=== PATIENT | male | born 1990 | race African-American/Black ===

== ENCOUNTER 2016-07-16 08:01 | Emergency (ER) | payer SELFPAY ==
[2016-07-16] MEDS ORDERED: IBUPROFEN 800 MG TABLET PO ONE (08:40)
[2016-07-16] MEDS ORDERED: HYDROCODONE/ACETAMINOPHEN 5-325 MG TABLET PO ONE (08:41)
--- NOTE | 2016-07-16 08:46 | ER Document Report ---
HPI - HPI Patient complains to provider of: right wrist pain Onset: Other Onset/Duration: Persistent - 3 weeks Quality of pain: Achy Pain Level: 4 Context: Patient reports right wrist pain for the past 3 weeks. 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 Patient states that he did recently filled a pop in his right wrist. Patient denies any specific injury. Associated Symptoms: Other Exacerbated by: Movement - Right wrist pain Relieved by: Remaining still Similar symptoms previously: No Recently seen / treated by doctor: No - ROS ROS below otherwise negative: Yes Systems Reviewed and Negative: Yes All other systems reviewed and negative - CONSTITUTIONAL Constitutional: DENIES: Fever, Chills - NEURO Neurology: DENIES: Weakness - GASTROINTESTINAL Gastrointestinal: DENIES: Nausea - REPRODUCTIVE Reproductive: DENIES: : - MUSCULOSKELETAL Musculoskeletal: REPORTS: Extremity pain - Right wrist. 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 Psychiatric Medical History: Reports: Hx Anxiety, Hx Depression Traumatic Medical History: Reports: Hx Fractures Surgical Hx: Negative - Immunizations Immunizations up to date: No Hx Diphtheria, Pertussis, Tetanus Vaccination: Yes Vertical Provider Document - CONSTITUTIONAL Agree With Documented VS: Yes Exam Limitations: No Limitations General Appearance: WD/WN, No Apparent Distress - INFECTION CONTROL TRAVEL OUTSIDE OF THE [place] IN LAST 30 DAYS: No - HEENT HEENT: Atraumatic, Normocephalic - NECK Neck: Normal Inspection, Supple - RESPIRATORY Respiratory: Breath Sounds Normal, No Respiratory Distress, Chest Non-Tender O2 Sat by Pulse Oximetry: 100 - CARDIOVASCULAR Cardiovascular: Regular Rate, Regular Rhythm, No Murmur Pulses: Normal: Radial - MUSCULOSKELETAL/EXTREMETIES Musculoskeletal/Extremeties: MAEW, FROM, Tender - Tenderness to medial aspect of distal right radius, positive Tinel sign, No Edema. negative: Eccymosis - NEURO Level of Consciousness: Awake, Alert, Appropriate Motor/Sensory: No Motor Deficit, No Sensory Deficit - DERM Integumentary: Warm, Dry, No Rash Course - Vital Signs Vital signs: Temp Pulse Resp BP Pulse Ox 97.7 F 70 16 146/91 H 100 07/16/16 08:04 07/16/16 08:04 07/16/16 08:04 07/16/16 08:04 07/16/16 08:04 - Diagnostic Test Radiology reviewed: Image reviewed, Reports reviewed Procedures - Immobilization Right Wrist Pre-Proc Neuro Vasc Exam: Normal Immobilizer type: Cock-up Performed by: PCT Post-Proc Neuro Vasc Exam: Normal Alignment checked and good: Yes Discharge - Discharge Clinical Impression: Wrist pain, right, Overuse injury Condition: Stable Disposition: HOME, SELF-CARE Instructions: Overuse Syndrome ([facility]), Anti-Inflammatory Medication ([facility]), Temporary Splint ([facility]) Additional Instructions: Return immediately for any new or worsening symptoms Followup with your primary care provider, call tomorrow to make a followup appointment Follow up with orthopedic Dr. for any continued pain or problems Prescriptions: Hydrocodone/Acetaminophen [[place] 5-325 Tablet] 1 each PO Q4 PRN #12 tablet PRN Reason: Naproxen [Naprosyn 250 Nmg Tablet] 1 tab PO BID #14 tablet Forms: Return to Work Referrals: [facility] [Provider Group] - Follow up as needed
[2016-07-16 10:00] VITALS: BP 124/79
== END 2016-07-16 09:54 | disposition home or self-care (01) ==
LOC: ER 08:01
DX: M25.531 Pain in right wrist (principal); M70.88 Other soft tissue disorders related to use, overuse and pressure other site; F17.200 Nicotine dependence, unspecified, uncomplicated
CPT/HCPCS: 99283; 73110; L3984

== ENCOUNTER 2016-08-28 12:56 | Emergency (ER) | payer SELFPAY ==
--- NOTE | 2016-08-28 13:33 | ER Document Report ---
HPI - HPI Pain Level: 5 Context: 26 yo male tripped over dog last pm. c/o pain to right foot, ankle and moran. no weight bearing tolerated Associated Symptoms: None Exacerbated by: Movement, Walking Relieved by: Denies Similar symptoms previously: No Recently seen / treated by doctor: No - ROS Systems Reviewed and Negative: Yes All other systems reviewed and negative - REPRODUCTIVE Reproductive: DENIES: : - DERM Skin Color: Normal Past Medical History - General Information source: Patient - Social History Smoking Status: Current Every Day Smoker Frequency of alcohol use: None Drug Abuse: None Lives with: Friend Family History: Reviewed & Not Pertinent, Other - lived in foster homes, does not know Patient has suicidal ideation: No Patient has homicidal ideation: No Pulmonary Medical History: Reports: Hx Asthma Renal/ Medical History: Denies: Hx Peritoneal Dialysis Musculoskeltal Medical History: Reports Hx Musculoskeletal Trauma - BACK INJ. Psychiatric Medical History: Reports: Hx Anxiety, Hx Depression Traumatic Medical History: Reports: Hx Fractures - Immunizations Immunizations up to date: No Hx Diphtheria, Pertussis, Tetanus Vaccination: Yes Vertical Provider Document - CONSTITUTIONAL Agree With Documented VS: Yes Exam Limitations: No Limitations General Appearance: WD/WN, Severe Distress - INFECTION CONTROL TRAVEL OUTSIDE OF THE [place] IN LAST 30 DAYS: No - HEENT HEENT: Atraumatic, PERRLA - NECK Neck: Normal Inspection, Supple - RESPIRATORY Respiratory: Breath Sounds Normal, No Respiratory Distress O2 Sat by Pulse Oximetry: 97 - CARDIOVASCULAR Cardiovascular: Regular Rate, Regular Rhythm - MUSCULOSKELETAL/EXTREMETIES Musculoskeletal/Extremeties: Tender - right mid dorsal foot. no deformity, edema or echymosis. distal SMC intact. mild tenderness to right medial and lateral malleolous. + abrasion and focal tenderness to right mid pre-tibial area Course - Re-evaluation Re-evalutation: 08/28/16 14:28 xray negative results reviewed with patient pt stable for discharge - Vital Signs Vital signs: Temp Pulse Resp BP Pulse Ox 99.1 F 112 H 16 130/78 H 97 08/28/16 13:08 08/28/16 13:08 08/28/16 13:08 08/28/16 13:08 08/28/16 13:08 Discharge - Discharge Clinical Impression: Right foot sprain Qualifiers: Encounter type: initial encounter Qualified Code(s): S93.601A - Unspecified sprain of right foot, initial encounter Right ankle sprain Qualifiers: Encounter type: initial encounter Contusion of right lower leg Qualifiers: Encounter type: initial encounter Qualified Code(s): S80.11XA - Contusion of right lower leg, initial encounter Condition: Stable Disposition: HOME, SELF-CARE Instructions: Ice Packs ([facility]), Sprain ([facility]), Ultram ([facility]), Rachid Wrap ([facility]) Prescriptions: Tramadol HCl [Ultram 50 mg Tablet] 50 mg PO ASDIR PRN #20 tablet PRN Reason:
[2016-08-28 14:40] VITALS: BP 122/71
== END 2016-08-28 14:38 | disposition home or self-care (01) ==
LOC: ER 12:56
DX: S93.601A Unspecified sprain of right foot, initial encounter (principal); S93.401A Sprain of unspecified ligament of right ankle, initial encounter; S80.11XA Contusion of right lower leg, initial encounter; W01.0XXA Fall on same level from slipping, tripping and stumbling without subsequent striking against object, initial encounter; F17.200 Nicotine dependence, unspecified, uncomplicated
CPT/HCPCS: 99283

== ENCOUNTER 2016-12-15 13:43 | Emergency (ER) | payer SELFPAY ==
[2016-12-15] MEDS ORDERED: KETOROLAC TROMETHAMINE INJ/PF 30 MG/1 ML SDV IV ONE (14:13)
--- NOTE | 2016-12-15 14:15 | ER Document Report ---
ED ENT - General Chief Complaint: Neck Swelling Stated Complaint: THROAT PAIN Time Seen by Provider: 12/15/16 13:54 Mode of Arrival: Ambulatory Information source: Patient Notes: 26-year-old male presents to ED for right-sided neck and in front of his ear swelling with pain to his ear and neck. Patient states it started on Friday but the pain has increased. TRAVEL OUTSIDE OF THE [place] IN LAST 30 DAYS: No - HPI Patient complains to provider of: Ear problem, Other - Face and neck swelling Onset: Other - Friday Onset/Duration: Gradual, Worse Quality of pain: Sharp Severity: Moderate Associated symptoms: Face swelling - In front of the right ear, Sore throat, Swollen glands Similar symptoms previously: No Recently seen / treated by doctor: No - Related Data Allergies/Adverse Reactions: No Known Allergies Allergy (Verified 12/15/16 13:48) Past Medical History - General Information source: Patient - Social History Smoking Status: Current Every Day Smoker Cigarette use (# per day): Yes - 4-5 cigarettes Chew tobacco use (# tins/day): No Smoking Education Provided: Yes - Less than 2 minutes Frequency of alcohol use: Occasional Drug Abuse: Marijuana Occupation: no Lives with: Spouse/Significant other Family History: Reviewed & Not Pertinent, Other - lived in foster homes, does not know Patient has suicidal ideation: No Patient has homicidal ideation: No - Past Medical History Cardiac Medical History: Reports: None Pulmonary Medical History: Reports: Hx Asthma EENT Medical History: Reports: None Neurological Medical History: Reports: None Endocrine Medical History: Reports: None Renal/ Medical History: Reports: None Malignancy Medical History: Reports None GI Medical History: Reports: None Musculoskeltal Medical History: Reports Hx Musculoskeletal Trauma - BACK INJ. Skin Medical History: Reports None Psychiatric Medical History: Reports: Hx Anxiety, Hx Depression Traumatic Medical History: Reports: Hx Fractures Infectious Medical History: Reports: None Surgical Hx: Negative Past Surgical History: Reports: None - Immunizations Immunizations up to date: No Hx Diphtheria, Pertussis, Tetanus Vaccination: Yes Review of Systems - Review of Systems Constitutional: No symptoms reported EENT: No symptoms reported Cardiovascular: No symptoms reported Respiratory: No symptoms reported Gastrointestinal: No symptoms reported Genitourinary: No symptoms reported Male Genitourinary: No symptoms reported Musculoskeletal: No symptoms reported Skin: No symptoms reported Hematologic/Lymphatic: No symptoms reported Neurological/Psychological: No symptoms reported -: Yes All other systems reviewed and negative Physical Exam - Vital signs Vitals: Temp Pulse Resp BP Pulse Ox 98.8 F 73 16 121/73 97 12/15/16 13:45 12/15/16 13:45 12/15/16 13:45 12/15/16 13:45 12/15/16 13:45 Interpretation: Normal - General General appearance: Appears well, Alert - HEENT Head: Normocephalic, Atraumatic Eyes: Normal Pupils: PERRL Ears: Other - Tender in front of his ear External canal: Normal Tympanic membrane: Normal Sinus: Normal Nasal: Normal Mouth/Lips: Normal Mucous membranes: Normal Pharynx: Normal Neck: Posterior cervical chain, Lymphadenopathy - Respiratory Respiratory status: No respiratory distress Chest status: Nontender Breath sounds: Normal Chest palpation: Normal - Cardiovascular Rhythm: Regular Heart sounds: Normal auscultation Murmur: No - Abdominal Inspection: Normal Distension: No distension Bowel sounds: Normal Tenderness: Nontender Organomegaly: No organomegaly - Back Back: Normal, Nontender - Extremities General upper extremity: Normal inspection, Nontender, Normal color, Normal ROM , Normal temperature General lower extremity: Normal inspection, Nontender, Normal color, Normal ROM , Normal temperature, Normal weight bearing. No: Elisa's sign - Neurological Neuro grossly intact: Yes Cognition: Normal Orientation: AAOx4 [place] Coma Scale Eye Opening: Spontaneous [place] Coma Scale Verbal: Oriented [place] Coma Scale Motor: Obeys Commands [place] Coma Scale Total: 15 Speech: Normal Motor strength normal: LUE, RUE, LLE, RLE Sensory: Normal - Psychological Associated symptoms: Normal affect, Normal mood - Skin Skin Temperature: Warm Skin Moisture: Dry Skin Color: Normal Course - Re-evaluation Re-evalutation: 12/15/16 17:54 Discussed history and physical with Dr. Tonya stubbs a he suggested a CT of the soft tissue neck. CT is soft tissue negative was negative patient was treated with clindamycin and Toradol in the emergency room and discharged home with prescription for clindamycin. Patient to follow-up with primary doctor. - Vital Signs Vital signs: Temp Pulse Resp BP Pulse Ox 98.4 F 65 20 112/74 100 12/15/16 15:22 12/15/16 15:22 12/15/16 15:22 12/15/16 15:22 12/15/16 15:22 - Diagnostic Test Radiology reviewed: Image reviewed, Reports reviewed Discharge - Discharge Clinical Impression: Acute parotitis Condition: Stable Disposition: HOME, SELF-CARE Instructions: Family Physicians / Practices Additional Instructions: Acute Parotid Gland Swelling The swollen area on your face is an enlarged parotid gland. This gland makes saliva, passing it to the mouth by a duct. Sudden swelling is usually due to blockage of the duct. If infection occurs behind the blocked duct, it can be very serious. The doctor will look for a stone in the duct. The usual treatment is: (1) to promote saliva flow, (2) to prevent or suppress infection in the gland, and (3) to control pain and swelling. Your physician may recommend rinses with dilute lemonade, or using lemon drops, to stimulate saliva. Depending on the circumstances, either warm packs or cold packs may be helpful in reducing pain and swelling (discuss this with your doctor). Antibiotics are often given. Call the doctor or return for re-examination if you develop high fever, chills, severe headache, or increasing painful swelling of the gland. Clindamycin You have been given a prescription for the antibiotic clindamycin. It is often prescribed for infections in the mouth, such as dental infections or abscesses, and for skin infections due to MRSA. It's important that you take all the medication, unless instructed otherwise by your physician. Failure to complete the entire course can result in relapse of your condition. Common side effects of antibiotics include nausea, intestinal cramping, or diarrhea. Women may develop vaginal yeast infections, and babies can get yeast (thrush) in the mouth following the use of antibiotics. Contact your physician if you develop significant side effects from this medication. Allergy to this antibiotic can result in hives, wheezing, faintness, or itching. If symptoms of allergy occur, stop the medication and call the doctor. Ibuprofen Ibuprofen is an excellent, safe drug for pain control. In addition, it has potent antiinflammatory effects which are beneficial, especially in the treatment of injuries, arthritis, or tendonitis. It's best to take ibuprofen with food. Persons with ulcer disease or allergy to aspirin should notify their physician of this before taking ibuprofen. Take the medication exactly as prescribed. Don't take additional doses unless instructed to do so by your doctor. If you develop wheezing, shortness of breath, hives, faintness, stomach pain, vomiting, or dark black stools, return for re-evaluation at once. FOLLOW-UP CARE: If you have been referred to a physician for follow-up care, call the physician s office for an appointment as you were instructed or within the next two days. If you experience worsening or a significant change in your symptoms, notify the physician immediately or return to the Emergency Department at any time for re-evaluation. Prescriptions: Clindamycin HCl [Cleocin 300 mg Capsule] 300 mg PO Q6 #12 capsule
--- NOTE | 2016-12-15 14:47 | RADIOLOGY REPORT (SQ) ---
EXAM DESCRIPTION: CT SOFT TISSUE NECK WITH COMPLETED DATE/TIME: 12/15/2016 2:36 pm REASON FOR STUDY: facial swelling COMPARISON: None. TECHNIQUE: Post IV contrasted scanning from skull base through lung apices with review of bone, soft tissue and lung windows. Reconstructed coronal and sagittal MPR images reviewed. All images stored on PACS. All CT scanners at this facility use dose modulation, iterative reconstruction, and/or weight based d osing when appropriate to reduce radiation dose to as low as reasonably achievable (ALARA). [facility]: Dose Right [facility]: CareDose [facility]: Dose Right [facility]: Teradose 4D [facility]: [employer] CONTRAST TYPE AND DOSE: 75mL Isovue 370- low osmolar. RENAL FUNCTION: None required. The patient is less than 50 years old. RADIATION DOSE: Up-to-date CT equipment and radiation dose reduction techniques were employed. CTDIv ol: 7.3 mGy. DLP: 239 mGy-cm. mGy. LIMITATIONS: None. FINDINGS: SKULL BASE: Intact. MAJOR SALIVARY GLANDS: No solid or cystic masses. No inflammatory changes. LYMPHADENOPATHY: No adenopathy. MUCOSAL MASSES OR ASYMMETRY: No mucosal masses or asymmetry. LARYNX/CORDS: No abnormal findings. VASCULAR STRUCTURES: The major vessels are patent. LUNG APICES: Clear. BONES: Intact. THYROID: Normal size. No masses. PARANASAL SINUSES: Tiny bilateral maxillary sinus mucous retention cyst. No air-fluid levels. OTHER: No other significant finding. IMPRESSION: NO SIGNIFICANT FINDING IN THE SOFT TISSUES OF THE NECK. TECHNICAL DOCUMENTATION: JOB ID: [id number] [facility] [id number]: Final reports with documentation of one or more dose reduction techniques (e.g., Automate d exposure control, adjustment of the mA and/or kV according to patient size, use of iterative recons truction technique) 2010 [employer]- All Rights Reserved
[2016-12-15] MEDS ORDERED: CEPHALEXIN 500 MG CAPSULE PO ONE (15:02)
[2016-12-15] MEDS ORDERED: CLINDAMYCIN HCL 150 MG CAPSULE PO ONE (15:04)
[2016-12-15 15:23] VITALS: BP 112/74
== END 2016-12-15 15:22 | disposition home or self-care (01) ==
LOC: ER 13:43
DX: K11.21 Acute sialoadenitis (principal); J45.909 Unspecified asthma, uncomplicated; F17.210 Nicotine dependence, cigarettes, uncomplicated; Z71.6 Tobacco abuse counseling; M54.2 Cervicalgia; J02.9 Acute pharyngitis, unspecified
CPT/HCPCS: 99284; 96374; 70491; J1885

== ENCOUNTER 2017-02-07 12:10 | Emergency (ER) | payer SELFPAY ==
--- NOTE | 2017-02-07 12:29 | ER Document Report ---
ED Substance Abuse / Acc. OD - General Mode of Arrival: Medic Information source: Emergency Med Personnel TRAVEL OUTSIDE OF THE [place] IN LAST 30 DAYS: No - HPI Patient complains to provider of: Other - Possible overdose Onset: This morning Associated Symptoms: Other - see notes above <FRITZ WASHBURNUR - Last Filed: 02/07/17 12:34> <ILA CHU - Last Filed: 02/07/17 16:25> - General Chief Complaint: Possible Overdose Stated Complaint: POSSIBLE OVERDOSE Time Seen by Provider: 02/07/17 12:15 Notes: 26 year old male with history of anxiety and depression presents to the ED via EMS after getting upset with his mother and allegedly taking 60 Celexa and 60 Hydroxyzine earlier this morning. Patient locked himself in the bathroom and it took [employer] 30 minutes for them to get to him. Patient was combative and was given 7 IM Versed. EMS found various medication at the patient's residence and brought with them a few different empty bottles dated from over a year ago. A comprehensive HPI is currently unobtainable due to the patient's status. ( ZEENAT WASHBURN) 26-year-old male with history of alcohol and substance abuse, depression, and behavior disorder. Allegedly was out drinking last night, came home at some point this morning got upset with his mother and took overdose of Celexa and hydroxyzine, quantity tablets unknown. Locked himself in bathroom. [employer] was called to the home to assist in extricate him from the bathroom. He ultimately ended up in handcuffs and still remained combative to the point that EMS gave him 2.5 mg of Versed 3 times(total of 7.5 mg) until they got him under control. EMS reports that the patient lives with his parents, and his girlfriend. (ILA CHU) - Related Data Allergies/Adverse Reactions: No Known Allergies Allergy (Verified 12/15/16 13:48) Home Medications: Current Home Medications No Home Medications 02/07/17 [History] Past Medical History - General Information source: Patient - Social History Smoking Status: Unknown if Ever Smoked Family History: Reviewed & Not Pertinent, Other - lived in foster homes, does not know Pulmonary Medical History: Reports: Hx Asthma Renal/ Medical History: Denies: Hx Peritoneal Dialysis Musculoskeltal Medical History: Reports Hx Musculoskeletal Trauma - BACK INJ. Psychiatric Medical History: Reports: Hx Anxiety, Hx Depression Traumatic Medical History: Reports: Hx Fractures - Immunizations Immunizations up to date: No Hx Diphtheria, Pertussis, Tetanus Vaccination: Yes <ZEENAT WASHBURN - Last Filed: 02/07/17 12:34> Review of Systems - Review of Systems -: Yes ROS unobtainable due to patient's medical condition <FRITZ WASHBURNUR - Last Filed: 02/07/17 12:34> Physical Exam - General General appearance: Other - patient is minimally responsive due to IM Versed and in restraints - HEENT Head: Normocephalic, Atraumatic Eyes: Normal Extraocular movements intact: Yes Pupils: PERRL - pupils are slightly constricted - Respiratory Respiratory status: No respiratory distress Breath sounds: Normal - Cardiovascular Rhythm: Regular Heart sounds: Normal auscultation - Abdominal Inspection: Normal - Extremities General upper extremity: Normal inspection, Normal ROM General lower extremity: Normal inspection, Normal ROM - Neurological Neuro grossly intact: Yes - Skin Skin Temperature: Warm Skin Moisture: Diaphoretic Skin Color: Normal <ZEENAT WASHBURN - Last Filed: 02/07/17 12:34> - Vital signs Vitals: Temp Resp Pulse Ox 97.4 F 28 H 95 02/07/17 12:17 02/07/17 12:17 02/07/17 12:17 Course - Laboratory Result Diagrams: 02/07/17 12:21 02/07/17 12:21 <ZEENAT WASHBURN - Last Filed: 02/07/17 12:34> - Laboratory Result Diagrams: 02/07/17 12:21 02/07/17 12:21 - EKG Interpretation by Id EKG shows normal: Sinus rhythm, Mullen, Intervals, QRS Complexes. abnormal: ST-T Waves - Early repolarization pattern Rate: Normal - 95 Rhythm: NSR When compared to previous EKG there are: No significant change <ILA CHU - Last Filed: 02/07/17 16:25> - Re-evaluation Re-evalutation: 02/07/17 16:24 The patient is now awake and alert. He refuses to interact or answer any questions. He will be placed on IVC hold until he can be better evaluated by the psychiatry/psychology department here. (ILA CHU) - Vital Signs Vital signs: Temp Pulse Resp BP Pulse Ox 97.4 F 17 102/73 96 02/07/17 12:17 02/07/17 13:00 02/07/17 13:00 02/07/17 13:00 - Laboratory Laboratory results interpreted by me: 02/07/17 02/07/17 02/07/17 12:21 12:21 12:42 RBC 5.94 H MCV 73 L MCH 23.5 L RDW 14.5 H Sodium 145.5 H Carbon Dioxide 21 L Anion Gap 21 H Glucose 161 H Albumin 5.1 H Urine Protein 100 H Urine Ketones TRACE H Urine Urobilinogen 4.0 H Urine Ascorbic Acid 40 H Salicylates < 1.0 L Acetaminophen < 10 L Discharge <ZEENAT WASHBURN - Last Filed: 02/07/17 12:34> <ILA CHU - Last Filed: 02/07/17 16:25> - Discharge Clinical Impression: Cocaine abuse, Multiple substance abuse, Difficulty controlling anger Overdose Qualifiers: Encounter type: initial encounter Injury intent: undetermined intent Qualified Code(s): T50.904A - Poisoning by unspecified drugs, medicaments and biological substances, undetermined, initial encounter Condition: Stable Disposition: PSYCH HOSP/UNIT Scribe Attestation: 02/07/17 13:33 I personally performed the services described in the documentation, reviewed and edited the documentation which was dictated to the scribe in my presence, and it accurately records my words and actions. (ILA CHU) Scribe Documentation - Scribe Written by Scribe:: Smith Grant, 02/07/2017 1246 acting as scribe for :: Darci <ZEENAT WASHBURN - Last Filed: 02/07/17 12:34>
[2017-02-07 12:54] LABS: ABSOLUTE MONOCYTES (AUTO) 0.5 10^3/uL (0.1-1.4); ABSOLUTE NEUT (AUTO) 4.5 10^3/uL (1.7-8.2); BASOPHILS % (AUTO) 0.7 % (0-2); HEMATOCRIT 43.6 % (37.9-51.0); HGB HCT DIFFERENCE -1.6; LYMPHOCYTES % (AUTO) 17.1 % (13-45); MEAN CORPUSCULAR HEMOGLOBIN 23.5 pg (27.0-33.4); MEAN CORPUSCULAR VOLUME 73 fl (80-97); MONOCYTES % (AUTO) 8.6 % (3-13); RED BLOOD COUNT 5.94 10^6/uL (4.35-5.55); RED CELL DISTRIBUTION WIDTH 14.5 % (11.5-14.0); SEGMENTED NEUTROPHILS % (AUTO) 73.6 % (42-78); WHITE BLOOD COUNT 6.1 10^3/uL (4.0-10.5)
--- NOTE | 2017-02-07 13:03 | EKG REPORT ---
SEVERITY:- ABNORMAL ECG - SINUS RHYTHM SHORT TN INTERVAL, ACCELERATED AV CONDUCTION CONSIDER LEFT VENTRICULAR HYPERTROPHY ST ELEV, PROBABLE NORMAL EARLY REPOL PATTERN : Confirmed by: Yakov Duncan MD 07-Feb-2017 13:03:15
[2017-02-07 13:08] LABS: APPEARANCE,URINE SLIGHTLY-CLOUDY; BILIRUBIN,URINE NEGATIVE (NEGATIVE); GLUCOSE, URINE NEGATIVE (NEGATIVE); KETONES,URINE TRACE mg/dL (NEGATIVE); LEUKOCYTE ESTERASE,URINE NEGATIVE (NEGATIVE); NITRITE,URINE NEGATIVE (NEGATIVE); PROTEIN,URINE 100 mg/dL (NEGATIVE); URINE SPECIFIC GRAVITY 1.033
[2017-02-07 13:08] LABS: ALANINE AMINOTRANSFERASE 36 U/L (21-72); ALBUMIN 5.1 g/dL (3.5-5.0); ALCOHOL < 10 mg/dL (NONE DETECTED); ALKALINE PHOSPHATASE 62 U/L (38-126); ASPARTATE AMINO TRANSFERASE 34 U/L (17-59); BILIRUBIN,DIRECT 0.4 mg/dL (0.0-0.4); BILIRUBIN,TOTAL 0.7 mg/dL (0.2-1.3); BLOOD UREA NITROGEN 14 mg/dL (7-20); CALCIUM 10.2 mg/dL (8.4-10.2); CARBON DIOXIDE 21 mmol/L (22-30); CHLORIDE 104 mmol/L (98-107); CREATININE RESULT 1.16 mg/dL (0.52-1.25); GLUCOSE 161 mg/dL (75-110); POTASSIUM 3.8 mmol/L (3.6-5.0); TOTAL PROTEIN 7.8 g/dL (6.3-8.2)
[2017-02-07 13:14] LABS: SODIUM 145.5 mmol/L (137-145)
[2017-02-07 13:20] LABS: URINE BARBITURATES SCREEN NEGATIVE; URINE METHADONE SCREEN NEGATIVE; URINE OPIATES LOW NEGATIVE; URINE PHENCYCLIDINE SCREEN NEGATIVE
[2017-02-07 13:21] LABS: ANION GAP 21 (5-19)
[2017-02-07] MEDS ORDERED: RINGERS SOLUTION,LACTATED 1,000 ML IV ONE (13:30)
--- NOTE | 2017-02-08 12:56 | ER Document Report ---
ED Psych Disorder / Suicide - General Chief Complaint: Possible Overdose Stated Complaint: POSSIBLE OVERDOSE Time Seen by Provider: 02/07/17 12:15 Mode of Arrival: Medic Information source: Patient, [facility] Records TRAVEL OUTSIDE OF THE [place] IN LAST 30 DAYS: No - HPI Suicide Risk Factors: Depressed, Frightened friends/family, Male, Substance abuse Situational problems related to: Other - pending homelessness Overdose of: Other Normal mood: No Associated symptoms: Depressed Similar symptoms previously: Yes - long hx Recently seen / treated by doctor: No Notes: Patient is a 26-year-old male who presented yesterday to to Polypharm overdose. Patient was reportedly combative on scene and additionally received 7 mg of Versed by EMS in route. Patient was unable to be evaluated. Patient today refuses to remove the covers from his face and does not verbally answer any questions himself. All information is provided by his jayesh who is bedside, and/or gathered by patient's EMR. Brandon George [phone] states: Yesterday around 11 she heard the patient throwing up. She states she went into the room and observed him open a bottle of pills and throat back in his mouth. She states he immediately started gagging and spitting/vomiting again. She states pill fragments were evident. She reports she tried to get the roommate to come help and when she returned the patient locked her out of the bedroom. Jayesh reports she used a knife to open the door and when he was still upset and agitated she went back to get the other roommate. Jayesh reports when they returned, patient's brother had to break the door down and patient was found "slicing his wrists" with the knife she previously used to enter the room. Jayesh states everything had been fine, but the woman they were staying with told everyone in the house they had to leave. She states the patient previously had outpatient services via [facility] however they were not reassigned to a new provider and have yet to identify one on their own. Jayesh reports the patient is diagnosed with depression and PTSD. She states his mood has been up and down. She states the patient did endorse suicidal intent behind his overdose and even when he was handcuffed he continued to bang his head on the wall. Patient is alert and oriented and does respond verbally however will not remove the covers from his head. Patient endorses that he is depressed. Patient endorses his overdose was a suicide attempt. Patient denies homicidal ideations , intent, plan, means. Patient denies A/VH; delusions not noted. Thought processes were guarded. Conversational speech was low for rate, tone, and prosody. Intellectual abilities were estimated within average range. Attention and focus were poor. Insight, judgment, impulse control are poor. Cocaine use disorder, moderate Cannabis use disorder, moderate Unspecified depressive disorder, per history Posttraumatic stress disorder, per history Patient is psychiatrically cleared for discharge. Patient's overall presentation and episode is considered to be directly related to his drug abuse , specifically chronic cocaine and marijuana use. Patient is encouraged and recommended to pursue outpatient services via [facility] who specializes in both substance abuse and mental illness. Patient and fianc were provided a list of resources to assist them in following up, to include contact information for mobile crisis. Additionally patient and fianc were provided resources for the [facility] Guide. Review of patient's medical records suggests a long history of prior episodes of similar etiology, specifically to also include not verbally engaging requiring patient's fianc to serve as historian. I consulted with Dr. Porter in regards to the care and management of this patient. - Related Data Allergies/Adverse Reactions: No Known Allergies Allergy (Verified 12/15/16 13:48) Home Medications: Current Home Medications No Home Medications 02/07/17 [History] Past Medical History - General Information source: Patient, Relative - fiance, [facility] Records - Social History Smoking Status: Unknown if Ever Smoked Frequency of alcohol use: Social Drug Abuse: Cocaine, Marijuana Lives with: Family, Spouse/Significant other Family History: Reviewed & Not Pertinent, Other - lived in foster homes, does not know Patient has suicidal ideation: No Patient has homicidal ideation: No Pulmonary Medical History: Reports: Hx Asthma Renal/ Medical History: Denies: Hx Peritoneal Dialysis Musculoskeltal Medical History: Reports Hx Musculoskeletal Trauma - BACK INJ. Psychiatric Medical History: Reports: Hx Anxiety, Hx Depression Traumatic Medical History: Reports: Hx Fractures - Immunizations Immunizations up to date: No Hx Diphtheria, Pertussis, Tetanus Vaccination: Yes Physical Exam - Vital signs Vitals: Temp Resp Pulse Ox 97.4 F 28 H 95 02/07/17 12:17 02/07/17 12:17 02/07/17 12:17 Course - Vital Signs Vital signs: Temp Pulse Resp BP Pulse Ox 97.4 F 56 L 18 110/60 100 02/07/17 12:17 02/08/17 06:55 02/08/17 06:55 02/08/17 06:55 02/08/17 06:55 - Laboratory Result Diagrams: 02/07/17 12:21 02/07/17 12:21 Laboratory results interpreted by me: 02/07/17 02/07/17 02/07/17 12:21 12:21 12:42 RBC 5.94 H MCV 73 L MCH 23.5 L RDW 14.5 H Sodium 145.5 H Carbon Dioxide 21 L Anion Gap 21 H Glucose 161 H Albumin 5.1 H Urine Protein 100 H Urine Ketones TRACE H Urine Urobilinogen 4.0 H Urine Ascorbic Acid 40 H Salicylates < 1.0 L Acetaminophen < 10 L Discharge - Discharge Clinical Impression: Cocaine abuse, Multiple substance abuse, Difficulty controlling anger Overdose Qualifiers: Encounter type: initial encounter Injury intent: undetermined intent Qualified Code(s): T50.904A - Poisoning by unspecified drugs, medicaments and biological substances, undetermined, initial encounter Condition: Stable Disposition: HOME, SELF-CARE Additional Instructions: Cocaine Abuse Cocaine causes many dangerous medical problems. Problems can occur even with "usual" amounts. Cocaine affects judgement, creating a sense of invulnerability. Cocaine users often make bad decisions that seem "great" at the time. Most cocaine users eventually will be hurt by bad job performance, damaged personal relations, crime, and unsafe sexual practices. Toxic effects of cocaine can include seizures, hallucinations, delusions, high blood pressure, heart damage, or sudden . There's always the risk of a "bad batch." But heart attacks, brain hemorrhages, or cardiac arrest can occur unpredictably even with "normal" use. Injection of cocaine is risky for abscesses, endocarditis (heart infection) , pneumonia, and AIDS. Withdrawal from cocaine often causes anxiety and drug cravings. Some users become paranoid and psychotic. Many treatment programs are available, but you must make the decision to quit. Medication can be prescribed to control the symptoms of cocaine toxicity (beta blockers or benzodiazepines). Withdrawal symptoms may require tranquilizers. Suicidal Ideation Suicidal ideation is a common medical term for thoughts about suicide, which may be as detailed as a formulated plan, without the suicidal act itself. Although most people who undergo suicidal ideation do not commit suicide, some go on to make suicide attempts. The range of suicidal ideation varies greatly from fleeting to detailed planning, role playing, and unsuccessful attempts. Please follow-up with [facility]. You may walk-in beginning Friday at 8 AM. [facility] specializes in mental illness as well as substance abuse. Please stop using drugs. Please return if your symptoms worsen. You have been provided a list of resources to assist you in following up to also include the Homeless [facility] Resource Guide. Referrals: [facility] [Provider Group] - 02/10/17 8:00 am (Please walk in for your Comprehensive Clinical Assessment to determine services.) Scribe Attestation: 02/07/17 13:33 I personally performed the services described in the documentation, reviewed and edited the documentation which was dictated to the scribe in my presence, and it accurately records my words and actions.
--- NOTE | 2017-02-08 14:11 | ER Document Report ---
Doctor's Note Notes: 02/08/17 14:10 26-year-old male with history of alcohol and substance abuse, depression, and behavior disorder. Allegedly was out drinking, came home at some point this morning got upset with his mother and took overdose of Celexa and hydroxyzine, quantity tablets unknown. Labs and drug screen as recorded. Patient denies any auditory or visual hallucinations. Patient is calm and sleeping in no acute distress. Patient still endorses suicidal ideation. Patient does not have a psychiatrist/ psychologist. He was supposed to follow-up with [facility], but has not seen them in an extended period of time. We will continue to observe the patient in attempt to medically manage as well as possibly find placement.
[2017-02-09] MEDS ORDERED: BUSPIRONE HCL 10 MG TABLET PO SCH ×2 (10:00→18:00)
[2017-02-09] MEDS ORDERED: VENLAFAXINE HCL 37.5 MG CAP.SR.24H PO SCH (10:00)
[2017-02-09] MEDS ORDERED: BUSPIRONE HCL 10 MG TABLET PO ONE ×2 (11:15→13:00)
[2017-02-10 09:50] VITALS: BP 118/70
== END 2017-02-10 09:42 | disposition home or self-care (01) ==
LOC: ER 12:10
DX: F14.10 Cocaine abuse, uncomplicated (principal); F41.9 Anxiety disorder, unspecified; T43.222A Poisoning by selective serotonin reuptake inhibitors, intentional self-harm, initial encounter; T43.592A Poisoning by other antipsychotics and neuroleptics, intentional self-harm, initial encounter; R45.4 Irritability and anger; Y92.002 Bathroom of unspecified non-institutional (private) residence as the place of occurrence of the external cause; F12.10 Cannabis abuse, uncomplicated
CPT/HCPCS: 93005; 99285; 96365; 36415; 80307 ×4; 85025; 80053; 81001; 93010; J7120

== ENCOUNTER 2017-02-16 01:33 | Emergency (ER) | payer SELFPAY ==
[2017-02-16] MEDS ORDERED: NORMAL SALINE 1000 ML 1,000 ML IV ONE (01:42)
--- NOTE | 2017-02-16 01:49 | ER Document Report ---
ED General - General Stated Complaint: ETOH Time Seen by Provider: 02/16/17 01:36 Notes: Patient is a 26-year-old male presents with complaint of alcohol intoxication possible panic attack. Her medics brought him in. They said they are called because he was sitting in front of the tobacco store intoxicated. When he got there he was saying that he cannot stand or walk. They eventually got him to stand up and walk to the ambulance truck. Patient does start hyperventilating and thing is having panic attack. Paramedics did not give him any medication is able to eventually come down. Since then the patient has been keeping his eyes closed. I was able sternal rub from the open his eyes looked at me and then close them again. He will not answer any of my questions. He is in no distress currently. TRAVEL OUTSIDE OF THE [place] IN LAST 30 DAYS: No - Related Data Allergies/Adverse Reactions: No Known Allergies Allergy (Verified 02/16/17 02:07) Past Medical History - Social History Smoking Status: Never Smoker Frequency of alcohol use: None Drug Abuse: None Family History: Reviewed & Not Pertinent, Other - lived in foster homes, does not know Pulmonary Medical History: Reports: Hx Asthma Renal/ Medical History: Denies: Hx Peritoneal Dialysis Musculoskeltal Medical History: Reports Hx Musculoskeletal Trauma - BACK INJ. Psychiatric Medical History: Reports: Hx Anxiety, Hx Depression Traumatic Medical History: Reports: Hx Fractures - Immunizations Immunizations up to date: No Hx Diphtheria, Pertussis, Tetanus Vaccination: Yes Review of Systems - Review of Systems -: Yes ROS unobtainable due to patient's medical condition - Patient will not answer questions. Currently intoxicated with alcohol. Physical Exam - Vital signs Vitals: Temp Pulse Resp BP Pulse Ox 97.4 F 66 16 102/52 L 100 02/16/17 02:22 02/16/17 02:22 02/16/17 02:22 02/16/17 02:22 02/16/17 02:22 - Notes Notes: General Appearance: Middle with eyes closed with no current distress. No tachypnea. Vitals: reviewed, See vital signs table. Head: no swelling or tenderness to the head Eyes: PERRL, EOMI, Conjuctiva clear Neck: Supple, no neck tenderness, Lungs: No wheezing, No rales, No rhonci, No accessory muscle use, good air exchange bilaterally. Heart: Normal rate, Regular rythm, No murmur, no rub Abdomen: Normal BS, soft, No rigidity, No abdominal tenderness, No guarding, no rebound, no abdominal masses, no organomegaly Extremities: strength 5/5 in all extremities, good pulses in all extremities, no swelling or tenderness in the extremities, no edema. Skin: warm, dry, appropriate color, no rash Neuro: Patient will open his eyes during sternal rub and look at me. When I asked him a question just closes his eyes and will not answer my question. Patient does withdraw to painful stimuli. Further neuro exam was not able to be obtained as patient is not compliant with instructions. Course - Re-evaluation Re-evalutation: 02/16/17 04:52 Patient is now awake and alert. He says he does not remember exactly what happened tonight. Does admit to drinking some alcohol. He says he does have a history of panic attacks and is on medication for this. He is unsure if he took that medication tonight. He says he now feels very well and has no further concerns or complaints. He denies having a severe depression at this time. He says he has no further needs from the ER at this time. Patient encouraged to return to ER if he has any further concerns or has any further issues. Patient will be discharged home. Patient agrees with plan will be discharged. Dictation of this chart was performed using voice recognition software; therefore, there may be some unintended grammatical errors. - Vital Signs Vital signs: Temp Pulse Resp BP Pulse Ox 97.4 F 66 16 102/52 L 100 02/16/17 02:22 02/16/17 02:22 02/16/17 02:22 02/16/17 02:22 02/16/17 02:22 - Laboratory Result Diagrams: 02/16/17 01:57 02/16/17 03:42 Laboratory results interpreted by me: 02/16/17 02/16/17 01:57 03:42 RBC 5.74 H MCV 72 L MCH 23.9 L RDW 14.4 H Seg Neutrophils % 40.9 L Lymphocytes % 50.3 H Chloride 108 H Total Protein 6.1 L Salicylates < 1.0 L Acetaminophen < 10 L - EKG Interpretation by Me Additional EKG results interpreted by me: 02/16/17 01:53 EKG is reviewed and interpreted by me. EKG shows normal sinus rhythm with rate of 69 bpm. Patient has concave up ST segment elevation consistent with early repolarization abnormality. No reciprocal ST segment depressions. OR interval , QRS duration, QTc intervals are within normal range. Old EKG for comparison is from February 07, 2017. Discharge - Discharge Clinical Impression: Alcohol abuse, Anxiety Condition: Good Disposition: HOME, SELF-CARE Additional Instructions: Please stay away from alcohol. Please return to the ER if you feel unwell, have severe depression, or have further concerns. Please follow-up with your doctor or counselor in the next 3-4 days for reevaluation.
[2017-02-16 02:11] LABS: ABSOLUTE LYMPHOCYTES (AUTO) 2.2 10^3/uL (0.5-4.7); ABSOLUTE MONOCYTES (AUTO) 0.3 10^3/uL (0.1-1.4); ABSOLUTE NEUT (AUTO) 1.8 10^3/uL (1.7-8.2); BASOPHILS % (AUTO) 1.1 % (0-2); EOSINOPHILS % (AUTO) 0.7 % (0-6); HEMATOCRIT 41.4 % (37.9-51.0); HEMOGLOBIN 13.7 g/dL (13.5-17.0); HGB HCT DIFFERENCE -0.3; LYMPHOCYTES % (AUTO) 50.3 % (13-45); MEAN CORPUSCULAR HEMOGLOBIN 23.9 pg (27.0-33.4); MEAN CORPUSCULAR HGB CONC 33.1 g/dL (32.0-36.0); MEAN CORPUSCULAR VOLUME 72 fl (80-97); RED BLOOD COUNT 5.74 10^6/uL (4.35-5.55); RED CELL DISTRIBUTION WIDTH 14.4 % (11.5-14.0); SEGMENTED NEUTROPHILS % (AUTO) 40.9 % (42-78); WHITE BLOOD COUNT 4.4 10^3/uL (4.0-10.5)
[2017-02-16 02:23] VITALS: BP 102/52
[2017-02-16 04:21] LABS: ALANINE AMINOTRANSFERASE 36 U/L (21-72); ALBUMIN 3.7 g/dL (3.5-5.0); ALCOHOL 63 mg/dL (NONE DETECTED); ALKALINE PHOSPHATASE 54 U/L (38-126); ANION GAP 12 (5-19); ASPARTATE AMINO TRANSFERASE 27 U/L (17-59); BILIRUBIN,DIRECT 0.3 mg/dL (0.0-0.4); BILIRUBIN,TOTAL 0.4 mg/dL (0.2-1.3); BLOOD UREA NITROGEN 13 mg/dL (7-20); CALCIUM 8.4 mg/dL (8.4-10.2); CARBON DIOXIDE 24 mmol/L (22-30); CHLORIDE 108 mmol/L (98-107); CREATININE RESULT 0.81 mg/dL (0.52-1.25); GLUCOSE 90 mg/dL (75-110); POTASSIUM 4.5 mmol/L (3.6-5.0); SODIUM 143.7 mmol/L (137-145); TOTAL PROTEIN 6.1 g/dL (6.3-8.2)
--- NOTE | 2017-02-16 09:21 | EKG REPORT ---
SEVERITY:- ABNORMAL ECG - SINUS RHYTHM PROBABLE LEFT VENTRICULAR HYPERTROPHY ST ELEVATION SUGGESTS PERICARDITIS : Confirmed by: Anuja Olguin MD 16-Feb-2017 09:21:01
== END 2017-02-16 06:12 | disposition home or self-care (01) ==
LOC: ER 01:33
DX: F10.129 Alcohol abuse with intoxication, unspecified (principal); J45.909 Unspecified asthma, uncomplicated; F41.9 Anxiety disorder, unspecified; F41.0 Panic disorder [episodic paroxysmal anxiety]; Z79.899 Other long term (current) drug therapy
CPT/HCPCS: 93005; 99284; 96360; 36415; 80307 ×3; 85025; 80053; 93010; J7030

== ENCOUNTER 2017-04-29 15:38 | Emergency (ER) | payer SELFPAY ==
--- NOTE | 2017-04-29 16:53 | ER Document Report ---
ED Medical Screen (RME) - General Chief Complaint: Wrist Pain Stated Complaint: RIGHT WRIST PAIN Time Seen by Provider: 04/29/17 16:51 Mode of Arrival: Ambulatory Information source: Patient Notes: pt reports fx wrist one year ago, still hurts, denies recent trauma. no obvious deformity. TRAVEL OUTSIDE OF THE [place] IN LAST 30 DAYS: No - Related Data Allergies/Adverse Reactions: No Known Allergies Allergy (Verified 04/29/17 15:44) Past Medical History Pulmonary Medical History: Reports: Hx Asthma Renal/ Medical History: Denies: Hx Peritoneal Dialysis Musculoskeltal Medical History: Reports Hx Musculoskeletal Trauma - BACK INJ. Psychiatric Medical History: Reports: Hx Anxiety, Hx Depression Traumatic Medical History: Reports: Hx Fractures - Immunizations Immunizations up to date: No Hx Diphtheria, Pertussis, Tetanus Vaccination: Yes Physical Exam - Vital signs Vitals: Temp Pulse Resp BP Pulse Ox 99.4 F 75 14 145/70 H 99 04/29/17 15:57 04/29/17 15:57 04/29/17 15:57 04/29/17 15:57 04/29/17 15:57 Course - Vital Signs Vital signs: Temp Pulse Resp BP Pulse Ox 99.4 F 75 14 145/70 H 99 04/29/17 15:57 04/29/17 15:57 04/29/17 15:57 04/29/17 15:57 04/29/17 15:57
[2017-04-29] MEDS ORDERED: IBUPROFEN 800 MG TABLET PO ONE (16:56)
--- NOTE | 2017-04-29 17:28 | RADIOLOGY REPORT (SQ) ---
EXAM DESCRIPTION: WRIST RIGHT 3 VIEWS COMPLETED DATE/TIME: 04/29/2017 5:07 pm REASON FOR STUDY: wrist pain COMPARISON: 07/16/2016 NUMBER OF VIEWS: Three views. TECHNIQUE: AP, lateral, and oblique radiographic images acquired of the right wrist. LIMITATIONS: None. FINDINGS: MINERALIZATION: Normal. BONES: No acute fracture or dislocation. No worrisome bone lesions. Normal alignment. SOFT TISSUES: No soft tissue swelling. No foreign body. OTHER: No other significant finding. IMPRESSION: NEGATIVE STUDY OF THE RIGHT WRIST. NO RADIOGRAPHIC EVIDENCE OF ACUTE INJURY. TECHNICAL DOCUMENTATION: JOB ID: [id number] [employer]- All Rights Reserved
--- NOTE | 2017-04-29 19:03 | ER Document Report ---
ED Hand/Wrist Injury - General Chief Complaint: Wrist Pain Stated Complaint: RIGHT WRIST PAIN Time Seen by Provider: 04/29/17 16:51 Mode of Arrival: Ambulatory TRAVEL OUTSIDE OF THE [place] IN LAST 30 DAYS: No - HPI Notes: 27-year-old presents today with complaints of right wrist pain - Related Data Allergies/Adverse Reactions: No Known Allergies Allergy (Verified 04/29/17 15:44) Past Medical History - General Information source: Patient - Social History Smoking Status: Current Some Day Smoker Family History: None, Reviewed & Not Pertinent, Other - lived in foster homes, does not know Pulmonary Medical History: Reports: Hx Asthma Renal/ Medical History: Denies: Hx Peritoneal Dialysis Musculoskeltal Medical History: Reports Hx Musculoskeletal Trauma - BACK INJ. Psychiatric Medical History: Reports: Hx Anxiety, Hx Depression Traumatic Medical History: Reports: Hx Fractures - Immunizations Immunizations up to date: No Hx Diphtheria, Pertussis, Tetanus Vaccination: Yes Review of Systems - Review of Systems Constitutional: No symptoms reported Cardiovascular: No symptoms reported Respiratory: No symptoms reported Gastrointestinal: No symptoms reported Musculoskeletal: See HPI Skin: No symptoms reported -: Yes All other systems reviewed and negative Physical Exam - Vital signs Vitals: Temp Pulse Resp BP Pulse Ox 99.4 F 75 14 145/70 H 99 04/29/17 15:57 04/29/17 15:57 04/29/17 15:57 04/29/17 15:57 04/29/17 15:57 - General General appearance: Appears well In distress: None - Respiratory Respiratory status: No respiratory distress Chest status: Nontender Breath sounds: Normal - Cardiovascular Rhythm: Regular Heart sounds: Normal auscultation Murmur: Yes Normal capillary refill: Yes - Extremities Elbow: Normal Forearm: Normal Wrist: Other - noted right wrist pain with inversion but not on flexion, extenison or eversion of wrist. digits in right and left with full aprom. Full motor and sensory function in JULIO C. 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 Snuffbox tenderness negative on right and left. radial pulses + 2 BUE equally. Negative kanavels sign. No open wounds or drainage from wrist. No vascular compromise. left wrist wnl. Bilateral forearms and elbows with full motor and sensory function equally. 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 On re-exam, patient is symptomatically improved. Discussed the results of the radiology as well as the diagnosis at great length. Discussed the need to return to the ER for any new or worsening sx. Patient understands to take the Rx as directed. All questions answered. Patient comfortable with the decision to go home. 04/29/17 19:21 - Vital Signs Vital signs: Temp Pulse Resp BP Pulse Ox 99.4 F 75 14 145/70 H 99 04/29/17 15:57 04/29/17 15:57 04/29/17 15:57 04/29/17 15:57 04/29/17 15:57 - Diagnostic Test Radiology results interpreted by me: rechecked the patient who is resting comfortably. On re-exam, patient is symptomatically improved. Discussed the results of the labs/radiology as well as the diagnosis at great length. Discussed the need to return to the ER for any new or worsening sx. Patient understands to take the Rx as directed. All questions answered. Patient comfortable with the decision to go home. 04/29/17 19:23 - Diagnostic Exam Right Wrist Type of test: Xray - neg per rad Discharge - Discharge Clinical Impression: Right wrist sprain Qualifiers: Encounter type: initial encounter Qualified Code(s): S63.501A - Unspecified sprain of right wrist, initial encounter Condition: Good Disposition: HOME, SELF-CARE Instructions: Wrist Sprain ([facility]) Additional Instructions: Wear his splint as directed. Apply heat 20 minutes on 20 minutes off several times a day. Follow-up with developmental specialist within 1 week. Wear wrist splint while working.advised to return to the ER if any signs or symptoms became worse. Take [id number] Tylenol and prescription meloxicam as needed for any fevers or pain. Follow up with primary care within 1-2 days. All questions and concerns answered by this provider . Patient/family states would follow plan of care and agreed to plan of care. Patient was discharged home and off unit without incident. Please excuse any errors in this document was done by dragon dictation. Forms: Return to Work Referrals: CHRISTOPHER SOL MD [ACTIVE STAFF] - Follow up as needed
[2017-04-29 19:58] VITALS: BP 128/78
== END 2017-04-29 19:58 | disposition home or self-care (01) ==
LOC: ER 15:38
DX: S63.501A Unspecified sprain of right wrist, initial encounter (principal); F17.200 Nicotine dependence, unspecified, uncomplicated; X58.XXXA Exposure to other specified factors, initial encounter
CPT/HCPCS: 99283

== ENCOUNTER 2017-05-23 01:21 | Emergency (ER) | payer SELFPAY ==
[2017-05-23 03:25] LABS: ABSOLUTE MONOCYTES (AUTO) 0.5 10^3/uL (0.1-1.4); ABSOLUTE NEUT (AUTO) 5.4 10^3/uL (1.7-8.2); BASOPHILS % (AUTO) 0.4 % (0-2); HEMATOCRIT 40.3 % (37.9-51.0); LYMPHOCYTES % (AUTO) 14.1 % (13-45); MEAN CORPUSCULAR HEMOGLOBIN 23.2 pg (27.0-33.4); MEAN CORPUSCULAR HGB CONC 32.3 g/dL (32.0-36.0); MEAN CORPUSCULAR VOLUME 72 fl (80-97); MONOCYTES % (AUTO) 7.1 % (3-13); PLATELET COUNT 189 10^3/uL (150-450); RED BLOOD COUNT 5.63 10^6/uL (4.35-5.55); RED CELL DISTRIBUTION WIDTH 14.4 % (11.5-14.0); SEGMENTED NEUTROPHILS % (AUTO) 78.4 % (42-78); TOTAL CELLS COUNTED % (AUTO) 100 %; WHITE BLOOD COUNT 6.9 10^3/uL (4.0-10.5)
--- NOTE | 2017-05-23 03:34 | RADIOLOGY REPORT (SQ) ---
EXAM DESCRIPTION: CT HEAD WITHOUT CLINICAL HISTORY: trauma COMPARISON: None available TECHNIQUE: Axial CT of the head obtained from the skull apex to the skull base without contrast. FINDINGS: No acute intracranial hemorrhage identified. No mass, mass effect, shift of the midline, abnormal extra-axial fluid collection or CT evidence of acute ischemic change identified. The ventricular system is unremarkable. No acute abnormalities of the supratentorial white matter, basal ganglia, cerebellum, or brainstem. Mucosal thickening of the paranasal sinuses. Mastoid air cells are well aerated. No skull fracture identified. Visualized orbits and globes are unremarkable. Contusion in the anterior frontal scalp soft tissues. DLP: 1106.28 mGy-cm IMPRESSION: 1. No acute intracranial abnormality. This exam was performed according to our departmental dose-optimization program, which includes automated exposure control, adjustment of the mA and/or kV according to patient size and/or use of iterative reconstruction technique.
--- NOTE | 2017-05-23 03:36 | RADIOLOGY REPORT (SQ) ---
EXAM DESCRIPTION: CT CERVICAL SPINE WITHOUT CLINICAL HISTORY: trauma COMPARISON: None available TECHNIQUE: Axial CT of the cervical spine obtained without contrast. FINDINGS: Alignment of the cervical spine is maintained without evidence of subluxation. The atlantoaxial, atlantodental, and occipitoatlantal intervals are preserved. No fracture identified. Vertebral body height preserved. Prevertebral soft tissues are unremarkable. Intervertebral disc height preserved. Mild endplate spondylosis. No central canal narrowing. Visualized skull base is intact. No fracture of the visualized facial bones. Visualized mastoid air cells and paranasal sinuses are well aerated. Visualized thyroid is unremarkable. No cervical lymphadenopathy. No pneumothorax in the visualized lung apices. DLP: 400.23 mGy-cm IMPRESSION: 1. No acute fracture or subluxation of the cervical spine. This exam was performed according to our departmental dose-optimization program, which includes automated exposure control, adjustment of the mA and/or kV according to patient size and/or use of iterative reconstruction technique.
[2017-05-23 03:40] LABS: ALANINE AMINOTRANSFERASE 43 U/L (21-72); ALBUMIN 4.8 g/dL (3.5-5.0); ALKALINE PHOSPHATASE 61 U/L (38-126); ANION GAP 12 (5-19); ASPARTATE AMINO TRANSFERASE 36 U/L (17-59); BILIRUBIN,DIRECT 0.1 mg/dL (0.0-0.4); BILIRUBIN,TOTAL 0.5 mg/dL (0.2-1.3); BLOOD UREA NITROGEN 15 mg/dL (7-20); CALCIUM 10.3 mg/dL (8.4-10.2); CARBON DIOXIDE 26 mmol/L (22-30); CHLORIDE 105 mmol/L (98-107); GLUCOSE 89 mg/dL (75-110); POTASSIUM 4.4 mmol/L (3.6-5.0); SODIUM 142.9 mmol/L (137-145); TOTAL PROTEIN 7.4 g/dL (6.3-8.2)
[2017-05-23 03:55] LABS: ACETAMINOPHEN < 10 ug/mL (10-30); ALCOHOL < 10 mg/dL (NONE DETECTED); SALICYLATE < 1.0 mg/dL (2.0-20.0)
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
--- NOTE | 2017-05-23 07:41 | EKG REPORT ---
SEVERITY:- ABNORMAL ECG - SINUS RHYTHM CONSIDER LEFT VENTRICULAR HYPERTROPHY ST ELEVATION SUGGESTS PERICARDITIS : Confirmed by: Anuja Olguin MD 23-May-2017 07:40:54
[2017-05-23 12:03] LABS: APPEARANCE,URINE CLOUDY; BILIRUBIN,URINE NEGATIVE (NEGATIVE); COLOR,URINE YELLOW; GLUCOSE, URINE 50 mg/dL (NEGATIVE); KETONES,URINE TRACE mg/dL (NEGATIVE); LEUKOCYTE ESTERASE,URINE TRACE (NEGATIVE); NITRITE,URINE NEGATIVE (NEGATIVE); PROTEIN,URINE 100 mg/dL (NEGATIVE); URINE SPECIFIC GRAVITY 1.028
[2017-05-23 12:25] LABS: URINE AMPHETAMINES SCREEN NEGATIVE; URINE BARBITURATES SCREEN NEGATIVE; URINE BENZODIAZEPINES SCREEN UNCONFIRMED POSITIVE; URINE COCAINE SCREEN UNCONFIRMED POSITIVE; URINE MARIJUANA (THC) SCREEN NEGATIVE; URINE METHADONE SCREEN NEGATIVE; URINE PHENCYCLIDINE SCREEN NEGATIVE
--- NOTE | 2017-05-23 15:46 | ER Document Report ---
Doctor's Note Notes: 05/23/17 15:45 Medical rounds: Chart reviewed and patient interviewed briefly. Vital signs are satisfactory. Laboratory results unremarkable. Patient is alert, oriented , and cooperative. He verbalizes no specific somatic complaints. He is medically stable pending psychosocial evaluation and disposition.
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
[2017-05-23 16:31] VITALS: BP 108/70
== END 2017-05-23 16:32 | disposition home or self-care (01) ==
LOC: ER 01:21
DX: F14.10 Cocaine abuse, uncomplicated (principal); T14.91XA Suicide attempt, initial encounter; S00.83XA Contusion of other part of head, initial encounter; F12.20 Cannabis dependence, uncomplicated; W22.09XA Striking against other stationary object, initial encounter; F43.10 Post-traumatic stress disorder, unspecified; F32.9 Major depressive disorder, single episode, unspecified
CPT/HCPCS: 36415; 70450; 72125; 80053; 80307; 81001; 85025; 93005; 93010; 99285

== ENCOUNTER 2017-12-24 06:48 | Emergency (ER) | payer MEDICAID ==
[2017-12-24] MEDS ORDERED: NORMAL SALINE 1000 ML 1,000 ML IV ONE (06:56)
[2017-12-24 07:15] VITALS: BP 122/65
[2017-12-24] MEDS ORDERED: HALOPERIDOL LACTATE INJ 5 MG/1 ML VIAL IV ONE (07:23)
--- NOTE | 2017-12-24 07:23 | ER Document Report ---
ED General - General Chief Complaint: Abdominal Pain Stated Complaint: ABDOMINAL PAIN Time Seen by Provider: 12/24/17 07:16 TRAVEL OUTSIDE OF THE [place] IN LAST 30 DAYS: No - HPI Patient complains to provider of: abdominal pain Notes: 27-year-old male presents with 8/10 sharp right lower quadrant pain. Has been associated with nausea vomiting. Denies diarrhea dysuria, fever or chills. No sick contacts. - Related Data Allergies/Adverse Reactions: No Known Allergies Allergy (Verified 04/29/17 15:44) Past Medical History - Social History Smoking Status: Unknown if Ever Smoked Family History: None, Reviewed & Not Pertinent, Other - lived in foster homes, does not know Pulmonary Medical History: Reports: Hx Asthma Renal/ Medical History: Denies: Hx Peritoneal Dialysis Musculoskeletal Medical History: Reports Hx Musculoskeletal Trauma - BACK INJ. Psychiatric Medical History: Reports: Hx Anxiety, Hx Depression Traumatic Medical History: Reports: Hx Fractures - Immunizations Immunizations up to date: No Hx Diphtheria, Pertussis, Tetanus Vaccination: Yes Review of Systems - Review of Systems Notes: REVIEW OF SYSTEMS: CONSTITUTIONAL: -fevers, -chills EENT: -eye pain, -difficulty swallowing, -nasal congestion CARDIOVASCULAR: -chest pain, -syncope. RESPIRATORY: -cough, -SOB GASTROINTESTINAL: +abdominal pain, +nausea, +vomiting, -diarrhea GENITOURINARY: -dysuria, -hematuria MUSCULOSKELETAL: -back pain, -neck pain SKIN: -rash or skin lesions. HEMATOLOGIC: -easy bruising or bleeding. LYMPHATIC: -swollen, enlarged glands. NEUROLOGICAL: -altered mental status or loss of consciousness, -headache, - neurologic symptoms PSYCHIATRIC: -anxiety, -depression. ALL OTHER SYSTEMS REVIEWED AND NEGATIVE. Physical Exam - Vital signs Vitals: Temp Resp Pulse Ox 98.5 F 14 100 12/24/17 06:55 12/24/17 06:55 12/24/17 06:55 - Notes Notes: PHYSICAL EXAMINATION: GENERAL: Well-appearing, well-nourished and in no acute distress. HEAD: Atraumatic, normocephalic. EYES: Pupils equal round and reactive to light, extraocular movements intact, sclera anicteric, conjunctiva are normal. ENT: nares patent, oropharynx clear without exudates. Moist mucous membranes. NECK: Normal range of motion, supple without lymphadenopathy LUNGS: Breath sounds clear to auscultation bilaterally and equal. No wheezes rales or rhonchi. HEART: Regular rate and rhythm without murmurs ABDOMEN: Soft, nontender, normoactive bowel sounds. No guarding, no rebound. No masses appreciated. EXTREMITIES: Normal range of motion, no pitting or edema. No cyanosis. NEUROLOGICAL: Cranial nerves grossly intact. Normal speech, normal gait. Normal sensory and motor exams. PSYCH: Normal mood, normal affect. SKIN: Warm, Dry, normal turgor, no rashes or lesions noted. Course - Re-evaluation Re-evalutation: 12/24/17 08:41 Patient admits to doing drugs last night, asking for gonorrhea chlamydia test. Has been having unprotected sex with multiple female partners. Patient says his stomach pain preceded the partying last night. Suffering from abdominal pain for approximately 1 week. 12/24/17 08:42 Patient is stable vital signs within normal limits, eating drinking acting appropriately in the emergency department. Given adequate IV fluid resuscitation and antiemetics. 12/24/17 09:49 Patient's extensive lab workup unremarkable negative leukocytosis no other abnormalities. CAT scan abdomen and pelvis with IV contrast reveals no acute process. Patient will be discharged home improved - Vital Signs Vital signs: Temp Pulse Resp BP Pulse Ox 98.5 F 35 H 122/65 100 12/24/17 06:55 12/24/17 07:01 12/24/17 07:01 12/24/17 07:01 - Laboratory Result Diagrams: 12/24/17 07:41 12/24/17 07:41 Laboratory results interpreted by me: 12/24/17 12/24/17 07:41 07:41 RBC 5.94 H MCV 72 L MCH 23.3 L RDW 15.6 H Sodium 145.8 H Glucose 115 H Calcium 10.4 H Total Protein 8.5 H Albumin 5.2 H - Diagnostic Test Radiology reviewed: Image reviewed, Reports reviewed Discharge - Discharge Clinical Impression: Drug abuse Abdominal pain Qualifiers: Abdominal location: generalized Qualified Code(s): R10.84 - Generalized abdominal pain Condition: Stable Disposition: HOME, SELF-CARE Admitting Provider: See your PCP Instructions: Abdominal Pain ([facility])
--- NOTE | 2017-12-24 07:53 | EKG REPORT ---
SEVERITY:- ABNORMAL ECG - SINUS RHYTHM LEFT ATRIAL ABNORMALITY PROBABLE LEFT VENTRICULAR HYPERTROPHY : Confirmed by: Yakov Duncan MD 24-Dec-2017 07:52:39
[2017-12-24 07:58] LABS: ABSOLUTE LYMPHOCYTES (AUTO) 1.3 10^3/uL (0.5-4.7); ABSOLUTE MONOCYTES (AUTO) 0.5 10^3/uL (0.1-1.4); ABSOLUTE NEUT (AUTO) 6.7 10^3/uL (1.7-8.2); BASOPHILS % (AUTO) 0.5 % (0-2); EOSINOPHILS % (AUTO) 0.2 % (0-6); HEMATOCRIT 42.7 % (37.9-51.0); HEMOGLOBIN 13.9 g/dL (13.5-17.0); LYMPHOCYTES % (AUTO) 15.4 % (13-45); MEAN CORPUSCULAR HEMOGLOBIN 23.3 pg (27.0-33.4); MEAN CORPUSCULAR HGB CONC 32.4 g/dL (32.0-36.0); MEAN CORPUSCULAR VOLUME 72 fl (80-97); MONOCYTES % (AUTO) 5.9 % (3-13); PLATELET COUNT 261 10^3/uL (150-450); RED BLOOD COUNT 5.94 10^6/uL (4.35-5.55); RED CELL DISTRIBUTION WIDTH 15.6 % (11.5-14.0); TOTAL CELLS COUNTED % (AUTO) 100 %; WHITE BLOOD COUNT 8.6 10^3/uL (4.0-10.5)
[2017-12-24 08:20] LABS: ALANINE AMINOTRANSFERASE 39 U/L (21-72); ALBUMIN 5.2 g/dL (3.5-5.0); ALKALINE PHOSPHATASE 72 U/L (38-126); ANION GAP 14 (5-19); ASPARTATE AMINO TRANSFERASE 42 U/L (17-59); BILIRUBIN,DIRECT 0.3 mg/dL (0.0-0.4); BLOOD UREA NITROGEN 14 mg/dL (7-20); CALCIUM 10.4 mg/dL (8.4-10.2); CARBON DIOXIDE 26 mmol/L (22-30); CHLORIDE 106 mmol/L (98-107); GLUCOSE 115 mg/dL (75-110); POTASSIUM 4.3 mmol/L (3.6-5.0); SODIUM 145.8 mmol/L (137-145); TOTAL PROTEIN 8.5 g/dL (6.3-8.2)
[2017-12-24 08:23] LABS: ALCOHOL < 10 mg/dL (NONE DETECTED)
--- NOTE | 2017-12-24 09:26 | RADIOLOGY REPORT (SQ) ---
EXAM DESCRIPTION: CT ABD/PELVIS WITH IV ONLY COMPLETED DATE/TIME: 12/24/2017 9:08 am REASON FOR STUDY: abdominal pain COMPARISON: 02/29/2016 TECHNIQUE: CT scan of the abdomen and pelvis performed using helical scanning technique with dynamic intravenous contrast injection. No oral contrast. Images reviewed with lung, soft tissue, and bone windows. Reconstructed coronal and sagittal MPR images reviewed. Delayed images for evaluation of the urinary system also acquired. All images stored on PACS. All CT scanners at this facility use dose modulation, iterative reconstruction, and/or weight based d osing when appropriate to reduce radiation dose to as low as reasonably achievable (ALARA). [facility]: Dose Right [facility]: CareDose [facility]: Dose Right [facility]: Teradose 4D [facility]: [employer] CONTRAST TYPE AND DOSE: contrast/concentration: Isovue 350.00 mg/ml; Total Contrast Delivered: 69.0 ml; Total Saline Delivered: 65.0 ml RENAL FUNCTION: BUN 14, creatinine 1.02 RADIATION DOSE: CT Rad equipment meets quality standard of care and radiation dose reduction techniq ues were employed. CTDIvol: 4.8 mGy. DLP: 497 mGy-cm.. LIMITATIONS: The patient has little intra or retroperitoneal fat making mild or early inflammatory c hanges easily obscured. FINDINGS: LOWER CHEST: No significant findings. No nodules or infiltrates. LIVER: Normal size. No masses. No dilated ducts. SPLEEN: Normal size. No focal lesions. PANCREAS: No masses. No significant calcifications. No adjacent inflammation or peripancreatic fluid collections. Pancreatic duct not dilated. GALLBLADDER: No identified stones by CT criteria. No inflammatory changes to suggest cholecystitis. ADRENAL GLANDS: No significant masses or asymmetry. RIGHT KIDNEY AND URETER: No solid masses. No significant calcifications. No hydronephrosis or hyd roureter. LEFT KIDNEY AND URETER: No solid masses. No significant calcifications. No hydronephrosis or hydr oureter. AORTA AND VESSELS: No aneurysm. No dissection. Renal arteries, SMA, celiac without stenosis. RETROPERITONEUM: No retroperitoneal adenopathy, hemorrhage or masses. BOWEL AND PERITONEAL CAVITY: No masses or inflammatory changes. No free fluid or peritoneal masses. APPENDIX: Not visualized. PELVIS: No mass. No free fluid. Normal bladder. ABDOMINAL WALL: No masses. No hernias. BONES: No significant or acute findings. OTHER: No other significant finding. IMPRESSION: NO SIGNIFICANT OR ACUTE FINDING IN THE ABDOMEN OR PELVIS ON CT SCAN WITH IV CONTRAST. TECHNICAL DOCUMENTATION: JOB ID: [id number] Quality ID # [id number]: Final reports with documentation of one or more dose reduction techniques (e.g., Au tomated exposure control, adjustment of the mA and/or kV according to patient size, use of iterative reconstruction technique) 2010 [employer]- All Rights Reserved Reading location - IP/workstation name: [email or web address]
== END 2017-12-24 10:31 | disposition home or self-care (01) ==
LOC: EEVIPCON 06:48 → ER 06:48
DX: F19.10 Other psychoactive substance abuse, uncomplicated (principal); R10.84 Generalized abdominal pain; R10.31 Right lower quadrant pain; R11.2 Nausea with vomiting, unspecified
CPT/HCPCS: 93005; 99284; 96361; 96374; 36415; 80307; 83605; 85025; 80053; 74177; 93010; J1630; J7030

== ENCOUNTER 2019-11-01 08:23 | Emergency (ER) | payer MEDICAID ==
--- NOTE | 2019-11-01 10:41 | RADIOLOGY REPORT (SQ) ---
EXAM DESCRIPTION: HAND LEFT 3 VIEWS IMAGES COMPLETED DATE/TIME: 11/01/2019 10:06 am REASON FOR STUDY: hand pain with previous dx of fracture COMPARISON: 11/20/2015 EXAM PARAMETERS: NUMBER OF VIEWS: Three views. TECHNIQUE: AP, lateral and oblique radiographic images acquired of the left hand. LIMITATIONS: None. FINDINGS: MINERALIZATION: Normal. BONES: No acute fracture dislocation. No suspicious osseous lesions. Healed 5th metacarpal boxer's fracture. JOINTS: No effusions. SOFT TISSUES: No soft tissue swelling. No foreign body. OTHER: No other significant finding. IMPRESSION: NEGATIVE STUDY OF THE LEFT HAND. NO RADIOGRAPHIC EVIDENCE OF ACUTE INJURY. TECHNICAL DOCUMENTATION: JOB ID: [id number] 2010 [email or web address]- All Rights Reserved Reading location - IP/workstation name: [email or web address]
[2019-11-01] MEDS ORDERED: HYDROCODONE/ACETAMINOPHEN 5-325 MG TABLET PO ONE (10:48)
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
[2019-11-01 10:59] VITALS: BP 128/74
== END 2019-11-01 11:03 | disposition home or self-care (01) ==
LOC: ER 08:23
DX: S63.92XA Sprain of unspecified part of left wrist and hand, initial encounter (principal); M79.642 Pain in left hand; X50.3XXA Overexertion from repetitive movements, initial encounter; Y93.H2 Activity, gardening and landscaping; F17.200 Nicotine dependence, unspecified, uncomplicated; J45.909 Unspecified asthma, uncomplicated
CPT/HCPCS: 99283